=== PATIENT | female | born 1985 | race Caucasian/White ===

== ENCOUNTER 2018-11-07 18:06 | Outpatient (CLI) | payer SELFPAY ==
[~2018-11-07] VITALS: Ht 167.6 cm; Wt 74.6 kg
[~2018-11-07 18:06] MED LIST: PREN-93 PO
[2018-11-07 18:20] VITALS: BP 122/82; PULSE 102; RESP 18; Ht 167.6 cm; Wt 74.6 kg
[2018-11-07] MEDS ORDERED: ONDANSETRON (ODT) 4 MG TAB ODT STA (18:37)
[2018-11-07] MEDS ORDERED: ACETAMINOPHEN 500 MG TAB PO STA (18:37)
[2018-11-07] MEDS ORDERED: CYCLOBENZAPRINE 10 MG TAB PO PRN (19:00)
[2018-11-07] MEDS ORDERED: morphine 10 MG INJ IV ONE (19:00)
== END 2018-11-07 21:30 | disposition home or self-care (01) ==
LOC: OBT 18:06 → L-D 18:07 → OBT 21:30
PROVIDERS: ATTEND Obstetrics & Gynecology
DX: O26.893 Other specified pregnancy related conditions, third trimester (principal); Z3A.30 30 weeks gestation of pregnancy; R10.2 Pelvic and perineal pain
CPT/HCPCS: 80053; 80307; 81001; 85025; G0463

== ENCOUNTER 2018-12-29 16:26 | Outpatient (CLI) | payer MEDICAID ==
[~2018-12-29] VITALS: Ht 165.1 cm; Wt 76.1 kg
[2018-12-29 17:03] VITALS: Ht 165.1 cm; Wt 76.1 kg
== END 2018-12-29 18:15 | disposition home or self-care (01) ==
LOC: OBT 16:26 → L-D 16:28 → OBT 18:15
PROVIDERS: ATTEND Obstetrics & Gynecology
DX: O26.893 Other specified pregnancy related conditions, third trimester (principal); Z3A.37 37 weeks gestation of pregnancy
CPT/HCPCS: 76818; 80053; 81001; 84560; 85025; 85384; 85610; 85730; Z7500; 81003; G0463